=== PATIENT | male | born 2000 | race Caucasian/White ===

== ENCOUNTER 2021-05-03 15:59 | Emergency (ER) | payer BC, SELFPAY ==
[2021-05-03 16:03] VITALS: BP 110/90; PULSE 77; RESP 20; TEMP 36.4; O2SAT 100
--- NOTE | 2021-05-03 16:57 | ED.ANXIETY ---
HPI - Anxiety General Chief Complaint: Anxiety Stated Complaint: worried he is bipolar Time Seen by Provider: 05/03/21 16:16 Source: patient Mode of arrival: ambulatory Limitations: no limitations History of Present Illness HPI narrative: Patient presents for evaluation of anxiety and depression. States over the last two years he has had increased stress. He dropped out of college and his girlfriend broke up with him. He moved back in with his parents and they have been fighting frequently. Patient states that he has felt depressed and attempted to see psychiatry but was unable to secure an appointment. His primary care provider put him on Lexapro last month. He states since starting the medication when he gets into a verbal argument with his parents he feels manic . He denies any current or recent SI, HI, AH, VH. He did attempt to commit suicide approximately 5 months ago, jumping off exam while intoxicated while in the company of his friends. He currently does not work or go to school. He has not consumed ETOH in about 5 months. He does smoke marijuana daily. He states he drove himself here today to determine whether he should continue with lexapro. Related Data Home Medications Medication Instructions Recorded Confirmed escitalopram oxalate [Lexapro] 10 mg PO DAILY 05/03/21 05/03/21 Allergies Allergy/AdvReac Type Severity Reaction Status Date / Time No Known Allergies Allergy Verified 05/03/21 18:01 Review of Systems Review of Systems: CONSTITUTIONAL: Denies fever, chills, or sweats. EYES: Denies visual changes, redness, or discharge. ENT: Denies rhinorrhea, congestion, sore throat, or otalgia. CARDIOVASCULAR: Denies chest pain, palpitations, or edema. RESPIRATORY: Denies cough or dyspnea. GASTROINTESTINAL: Denies abdominal pain, nausea, vomiting, or diarrhea. GENITOURINARY: Denies dysuria or hematuria. SKIN: Denies rash or itching. MUSCULOSKELETAL: Denies back pain, joint pain, or myalgia. NEUROLOGIC: Denies headache, numbness, dizziness, or weakness. PSYCHIATRIC: Reports anxiety, depression and feeling manic [facility] Past Medical History Medical History (Updated 05/03/21 @ 21:56 by Cy Diaz, ANTELMO, MALISSA) Anxiety Surgical History Surgical History No pertinent past surgical history Family History Family History Mother Family history unknown Social History Social History Tobacco type: e-cigarettes/vaping Alcohol intake: former Alcohol use details: Last used a few months ago Substance use type: marijuana Living arrangements: with family Gender identity (if verbalized by the patient): Male Sexual Orientation (if Verbalized by the Patient): Straight or Heterosexual Spiritual care concerns: No Exam Narrative: GENERAL: Well-appearing, well-nourished, and in no acute distress. HEAD: Normocephalic, atraumatic. EYES: PERRLA and EOMI. ENT: Nares clear, no rhinorrhea or epistaxis. Mucous membranes moist. Oropharynx without tonsillar hypertrophy exudate or other lesions. Bilateral TMs pearly wong nonbulging NECK: Supple. No adenopathy or masses. No carotid bruits or JVD CHEST: Clear to auscultation. No respiratory distress. No wheezes rales or rhonchi HEART: Regular rate and rhythm. No murmur heard. Normal peripheral pulses. ABDOMEN: Soft, nontender, nondistended, normal active bowel sounds. EXTREMITIES: Normal range of motion. No edema. SKIN: Warm, dry, no rash. NEURO: No focal deficits. Alert and oriented x3. PSYCH:Anxious, rapid speech pattern, demonstrates disordered thought process Course Course Emergency Course: This is a 20-year-old male who presented with complaints of anxiety and depression. He denies SI, HI, AH, VH. He was medically cleared and I had Crisis come to the ER to assess pt
--- NOTE | 2021-05-03 17:11 | PC.NURSE ---
Discussed patient with KILN PUSHER overseeing the patients care. LATONIA Benoit states that pt does not need changed in to green scrubs and does not require a sitter. Plan was discussed between this technical writer and editor and KILN PUSHER. We will obtain labs and urine. Crisis on-call will be contacted when results of labs are completed. Plan discussed with charge nurse.
[2021-05-03 17:27] LABS: Basophils Percent Auto 0.6 % (0.2-1.2); Eosinophils Percent Auto 0.4 % (0-4.4); Hematocrit 42.7 % (42.0-52.0); Hemoglobin 15.3 g/dL (14.0-18.0); Immature Granulocyte Absolute 0.01 K/mm3 (0.00-0.031); Immature Granulocyte Percent A 0.2 % (0-0.5); Lymphocytes Absolute Auto 1.56 K/mm3 (0.9-3.2); Lymphocytes Percent Auto 29.9 % (18.3-44.2); Mean Corpuscular HGB Conc 35.8 g/dl (32-36); Mean Corpuscular Hemoglobin 31.2 pg (26-34); Mean Corpuscular Volume 87.1 fl (80-100); Mean Platelet Volume 10.4 fl (7.4-10.4); Monocytes Absolute Auto 0.4 K/mm3 (0.1-0.6); Monocytes Percent Auto 6.7 % (2.6-8.5); Neutrophils Absolute Auto 3.2 K/mm3 (1.3-6.7); Neutrophils Percent Auto 62.2 % (45.5-73.1); Platelet Count Result 177 k/mm3 (150-375); Red Cell Distribution Width 12.3 % (11.5-14.5); White Blood Count 5.2 K/mm3 (4.5-10.0)
[2021-05-03 17:31] LABS: Add Urine Microscopic? YES; Appearance Urine Cloudy (Clear); Bilirubin Urine Negative (Negative); Blood Urine Negative (Negative); Color Urine Amber (Yellow); Glucose Urine UA 1+ mg/dL (Negative); Ketones Urine 1+ mg/dL (Negative); Leukocyte Esterase Ur Negative LEU/UL (Negative); Mucus Urine Heavy /lpf; Nitrate Urine Negative (Negative); Protein Urine 1+ mg/dL (Negative); Specific Grav Ur 1.029 (1.001-1.035); Squamous Epithelial Cell Urine Rare /hpf (Few); WBC Urine 0-3 /hpf
[2021-05-03 17:38] LABS: Alanine Aminotransferase 16 U/L (4-50); Albumin Level 4.7 g/dL (3.5-5.1); Alkaline Phosphatase 68 U/L (38-126); Anion Gap 9 mmol/L (8-16); Aspartate Amino Transferase 23 U/L (17-59); Blood Urea Nitrogen 12 mg/dL (9-20); Calcium 9.8 mg/dL (8.4-10.2); Carbon Dioxide 27 mmol/L (22-30); Chloride 103 mmol/L (98-107); Estimated CRCL calculation 107 ml/min; Estimated Glomerular Filt Rate > 60; Glucose 92 mg/dL (65-110); Sodium 139 mmol/L (137-145)
[2021-05-03 17:39] LABS: Acetaminophen < 10 ug/mL (10-30); Ethanol < 10 mg/dL (<10); Salicylate < 1.0 mg/dL (2-20)
[2021-05-03 17:50] LABS: Amphetamine Screen Urine Negative (Negative); Barbiturate Screen Urine Negative (Negative); Benzodiazepines Screen Urine Negative (Negative); Cannabinoid Screen Urine Positive (Negative); Cocaine Screen Urine Negative (Negative); Methadone Screen Urine Negative (Negative); Opiate Screen Urine Negative (Negative); Phencyclidine Screen Urine Negative (Negative)
--- NOTE | 2021-05-03 18:04 | PC.NURSE ---
Crisis contacted. Will come evaluate pt.
--- NOTE | 2021-05-03 20:17 | PC.NURSE ---
This rn called crisis Mariely Schuster unaware of this patient but did not get her shift started until 1800. Will send a worker out estela.
== END 2021-05-03 22:07 | disposition home or self-care (01) ==
PROVIDERS: Emergency Provider Nurse Practitioner; PCP Emergency Medicine
DX: F41.9 Anxiety disorder, unspecified (principal); F17.290 Nicotine dependence, other tobacco product, uncomplicated
CPT/HCPCS: 36415; 80053; 80307; 81001; 84443; 85025; 99284

== ENCOUNTER 2021-05-05 06:48 | Emergency (ER) | payer BC, SELFPAY ==
[2021-05-05 07:35] VITALS: BP 150/98; PULSE 95; RESP 20; TEMP 36.9; O2SAT 99
--- NOTE | 2021-05-05 08:14 | ED.GENADULT ---
HPI - General Adult General Chief complaint: Psychiatric Symptoms Stated complaint: manic episode Time Seen by Provider: 05/05/21 07:44 Source: patient and family Mode of arrival: ambulatory Limitations: no limitations History of Present Illness HPI narrative: Patient is 20 years old white male started on Lexapro 3 weeks ago and Lamictal yesterday for possible bipolar. Patient is telling me that he lives in the basement with his parents and he would like to get out and go live with his friends but he needs $750 a month. His mother agreed initially then declined greatly and told him that he cannot live with his friends because he is mentally unstable and he needs to stay in the basement. Patient denies any suicidal or homicidal ideation. He would like that his mom understand his point of view and situation but she does not. Patient scheduled to see a psychiatrist in 4 weeks. Patient denies any fever, chills, nausea, vomiting, headache, chest pain, shortness of breath or abdominal pain. Patient denies smoking, drinking or using drugs. Related Data Home Medications Medication Instructions Recorded Confirmed escitalopram oxalate [Lexapro] 10 mg PO DAILY 05/03/21 05/03/21 lamotrigine 50 mg PO DAILY 05/05/21 05/05/21 Allergies Allergy/AdvReac Type Severity Reaction Status Date / Time No Known Allergies Allergy Verified 05/03/21 18:01 Review of Systems Review of Systems: CONSTITUTIONAL: Denies fever, chills, or sweats. EYES: Denies visual changes, redness, or discharge. ENT: Denies rhinorrhea, congestion, sore throat, or otalgia. CARDIOVASCULAR: Denies chest pain, palpitations, or edema. RESPIRATORY: Denies cough or dyspnea. GASTROINTESTINAL: Denies abdominal pain, nausea, vomiting, or diarrhea. GENITOURINARY: Denies dysuria or hematuria. SKIN: Denies rash or itching. MUSCULOSKELETAL: Denies back pain, joint pain, or myalgia. NEUROLOGIC: Denies headache, numbness, or weakness. PSYCHIATRIC: Denies anxiety or depression. [facility] Past Medical History Medical History Anxiety Surgical History Surgical History No pertinent past surgical history Family History Family History Mother Family history unknown Social History Social History Tobacco type: e-cigarettes/vaping Alcohol intake: former Alcohol use details: Last used a few months ago Substance use type: marijuana Gender identity (if verbalized by the patient): Male Sexual Orientation (if Verbalized by the Patient): Straight or Heterosexual Spiritual care concerns: No Exam Narrative: General appearance: Well-developed, well-nourished Skin: Normal color Head: Normocephalic, nontraumatic Eyes: Clear conjunctiva ENT: Oropharynx normal, ears normal, nose normal Neck: Supple, nontender Chest and respiratory: Airway patent, no respiratory distress, no accessory muscle use Heart: Regular rate/rhythm Abdomen: Soft, nontender, no organomegaly, quiet bowel sounds Vascular: Normal peripheral pulses, normal capillary refill. Musculoskeletal: Normal range of motion, nontender back Neurologic: Alert and oriented ?3, [employer] is normal as tested, no gross motor deficit Psych: Appearance: grossly normal Mental Status: mental status grossly normal Speech and movement: Normal speech and movement present Affect: Anxious affect present Attitude: cooperative Thought process: Normal thought process present Thought content: Yes Normal thought content present Insight: Good insight
== END 2021-05-05 08:29 | disposition home or self-care (01) ==
PROVIDERS: Emergency Provider Emergency Medicine; PCP Emergency Medicine
DX: F41.9 Anxiety disorder, unspecified (principal); F17.290 Nicotine dependence, other tobacco product, uncomplicated
CPT/HCPCS: 99281

== ENCOUNTER 2022-09-15 10:36 | Emergency (ER) | payer BC, SELFPAY ==
[2022-09-15 10:42] VITALS: BP 131/76; PULSE 93; RESP 16; TEMP 36.8; O2SAT 98
--- NOTE | 2022-09-15 10:46 | ED.EYEPROB ---
HPI - Eye Problem General Chief complaint: Eye Problems Stated complaint: eye drainage Time Seen by Provider: 09/15/22 10:46 Source: patient and RN notes reviewed History of Present Illness HPI Narrative: Patient is a 22-year-old male who presents to urgent care with complaints of left eye drainage and itchiness. Patient states he noticed some redness last night and woke up with it matted shut. Patient states he has had a cold for the last week or so. Denies any use of [id number] medication. No other acute complaints. No acute distress noted. Patient aware of the plan of care. Some parts of this dictation were generated by voice recognition software and may contain typographical and/or grammatical inaccuracies. Related Data Home Medications Medication Instructions Recorded Confirmed escitalopram oxalate 10 mg tablet 10 mg PO DAILY 05/03/21 09/15/22 (Lexapro) lamotrigine 25 mg tablet 50 mg PO DAILY 05/05/21 09/15/22 aripiprazole 10 mg tablet 10 mg PO DAILY 09/15/22 09/15/22 atomoxetine 100 mg capsule 100 mg PO DAILY 09/15/22 09/15/22 bupropion HCl 150 mg 24 hr tablet, 150 mg PO DAILY 09/15/22 09/15/22 extended release buspirone 15 mg tablet 15 mg PO DAILY 09/15/22 09/15/22 Allergies Allergy/AdvReac Type Severity Reaction Status Date / Time No Known Allergies Allergy Verified 09/15/22 10:59 Review of Systems Review of Systems: CONSTITUTIONAL: Denies fever, chills, or sweats. EYES: Reports of left eye redness, drainage and matting ENT: Denies rhinorrhea, congestion, sore throat, or otalgia. CARDIOVASCULAR: Denies chest pain, palpitations, or edema. RESPIRATORY: Denies cough or dyspnea. GASTROINTESTINAL: Denies abdominal pain, nausea, vomiting, or diarrhea. GENITOURINARY: Denies dysuria or hematuria. SKIN: Denies rash or itching. MUSCULOSKELETAL: Denies back pain, joint pain, or myalgia. NEUROLOGIC: Denies headache, numbness, or weakness. All other systems reviewed are negative, except as documented in HPI. [facility] Past Medical History Medical History Anxiety Surgical History Surgical History No pertinent past surgical history Family History Family History Mother Family history unknown Social History Social History Tobacco type: e-cigarettes/vaping Alcohol intake: former Alcohol use details: Last used a few months ago Substance use type: marijuana Living arrangements: with family Gender identity (if verbalized by the patient): Male Sexual Orientation (if Verbalized by the Patient): Straight or Heterosexual Spiritual care concerns: No Comments At the time of my signature, I reviewed and agree with the nursing past medical, surgical, social, and family history. There is no relevant family history pertinent to the patient complaint. Exam Narrative: GENERAL: This is a well-nourished, well-developed patient, in no apparent distress. HEAD: normocephalic, atraumatic. EYES: PERRL. Right Sclera clear/white. Vision is grossly intact. Left erythema to the sclera with mild injected conjunctiva and clear drainage EARS: External ears normal NOSE: External nose normal with no obvious nasal discharge, nares without redness, no rhinorrhea. THROAT: Mucous membranes moist NECK: Neck supple, SKIN: warm, intact with no suspicious lesions or rash, good texture and turgor. NEURO: awake, alert, and oriented to person, place and time. There were no obvious focal neurologic abnormalities. EXTREMITIES: No clubbing, cyanosis, or edema. Course Course Level of Care: Express Care Visit Vital Signs Vital signs: Vital Signs Temperature 98.2 F 09/15/22 10:42 Pulse Rate 93 09/15/22 10:42 Respiratory Rate 16 09/15/22 10:42 Blood Pressure 131/76 09/15/22 10:42 Pulse Oximetry 98 03
== END 2022-09-15 11:29 | disposition home or self-care (01) ==
PROVIDERS: Emergency Provider Nurse Practitioner Family; PCP Emergency Medicine
DX: H10.9 Unspecified conjunctivitis (principal); F17.290 Nicotine dependence, other tobacco product, uncomplicated; F41.9 Anxiety disorder, unspecified
CPT/HCPCS: 99213; G0463